=== PATIENT | male | born 1995 | race Caucasian/White ===

== ENCOUNTER 2017-03-26 10:49 | Emergency (ER) | payer SELFPAY ==
[~2017-03-26] VITALS: Ht 182.9 cm; Wt 69.0 kg
[2017-03-26] MEDS ORDERED: METOCLOPRAMIDE HCL 10MG/2ML VIAL IM ONE (16:00)
[2017-03-26] MEDS ORDERED: KETOROLAC 60MG/2ML VIAL IM ONE (16:00)
[2017-03-26 16:10] VITALS: BP 103/48
== END 2017-03-26 16:55 | disposition home or self-care (01) ==
LOC: ER 10:49
DX: R11.2 Nausea with vomiting, unspecified (principal); F17.210 Nicotine dependence, cigarettes, uncomplicated; F12.10 Cannabis abuse, uncomplicated
CPT/HCPCS: 96372; 99284; J1885; J2765; Z7610